=== PATIENT | male | born 1950 | race Hispanic/Latino ===

== ENCOUNTER → 2025-06-13 | Day surgery (SDC) | payer OTHER ==
[~2025-06-13] MED LIST: ACETAMINOPHEN 1000 MG/100 ML 100 ML IV ONE; ASPIRIN EC81 MG PO; ATORVASTATIN CA20 MG PO; CITALOPRAM HBR20 MG PO; CLOTRIMAZOLE-BE15 GM TOP; DEXAMETHASONE SOD PHOS INJ 4 MG/ML SDV ONE; FENTANYL CITRATE/PF 100MCG/2 ML INJ ONE; FLOMAX0.4 MG PO; FUROSEMIDE40 MG PO; GABAPENTIN300 MG PO; LIDOCAINE HCL 2% LOCAL INJ 5 ML SDV VIAL INJ ONE; LISINOPRIL5 MG PO; METFORMIN HCL500 MG PO; MONTELUKAST SOD10 MG PO; ONDANSETRON HCL INJ 2MG/ML 2ML 2 MG/ML VIAL ONE; PHENYLEPHRINE HCL 1% 10 MG/ML VIAL ONE; PIOGLITAZONE HC45 MG PO; PROPOFOL IV EMULSION 10 MG/ML 20 ML VIAL ONE; ROCURONIUM BROMIDE 1 ML IV ONE; RYBELSUS14 MG PO; SEVOFLURANE INHAL SOLN 250 ML PEN BTL ONE; SUCCINYLCHOLINE CHLORIDE 20 MG/ML 10ML VIAL ONE; SUGAMMADEX SODIUM 200 MG/2 ML VIAL IV ONE; ZETIA10 MG PO
[2025-06-13] MEDS: LACTATED RINGER'S 1,000 ML ONE (06:11)
[2025-06-13 08:45] VITALS: TEMP 97.8
[2025-06-13] MEDS: FENTANYL CITRATE/PF 100MCG/2 ML INJ ONE (08:55)
[2025-06-13 10:00] VITALS: BP 128/61; PULSE 67; RESP 15; O2SAT 97
== END | disposition home or self-care (01) ==
LOC: OR 05:39 → EDBD 05:39
PROVIDERS: ATTEND Otolaryngology Otolaryngology/Facial Plastic Surgery
DX: J32.0 Chronic maxillary sinusitis (principal); J34.3 Hypertrophy of nasal turbinates; J34.89 Other specified disorders of nose and nasal sinuses; R09.82 Postnasal drip; J34.2 Deviated nasal septum; E11.9 Type 2 diabetes mellitus without complications; I10 Essential (primary) hypertension; I25.810 Atherosclerosis of coronary artery bypass graft(s) without angina pectoris; I25.2 Old myocardial infarction; E78.5 Hyperlipidemia, unspecified; E66.9 Obesity, unspecified; F41.9 Anxiety disorder, unspecified; Z79.82 Long term (current) use of aspirin; Z79.84 Long term (current) use of oral hypoglycemic drugs; Z79.899 Other long term (current) drug therapy; Z95.1 Presence of aortocoronary bypass graft; Z95.5 Presence of coronary angioplasty implant and graft; Z87.891 Personal history of nicotine dependence
CPT/HCPCS: 30130; 31267; 36415; 71046; 82948; 88305; J0131; J0330; J1100; J2003; J2371; J2405; J2704; J3010; J7121